=== PATIENT | male | born 1980 | race Caucasian/White ===

== ENCOUNTER 2018-09-12 15:52 | Emergency (ER) | payer MEDICAID, SELFPAY ==
[2018-09-12 15:53] VITALS: BP 135/102; PULSE 61; RESP 18; TEMP 36.6; O2SAT 99; BMI 29.7
--- NOTE | 2018-09-12 16:09 | ED.DCSUM_ITS ---
- ER Visit Summary Date of Service: 09/12/18 Chief Complaint: Suicidal ideation History of Present Illness: The patient is a 37 M patient reports he has been having suicidal thoughts since April of last year. He has not sought care for this until today. He was at the [facility] and was not able to contract for safety. He was sent to the emergency department. Reports he is having thoughts of jumping in front of a train. Physical Examination: Vitals: Stable. Afebrile. General: Well-nourished and well-developed. Head: Normocephalic atraumatic. Neck: Supple, no lymphadenopathy. No JVD. Nontender. Cardiovascular: Regular rate and rhythm. No murmurs. Respiratory: No respiratory distress. Clear to auscultation bilaterally. Abdominal: Soft, nontender, nondistended, normal bowel sounds. No guarding, rebound, or peritoneal signs. Back: Nontender. Extremities: Nontender, no edema. Skin: Normal color, no rash. Neurologic: Alert and oriented ?3. Cranial nerves II through XII are intact. Normal strength and sensation. Mental status exam: Patient appears their stated age. Good posture and grooming. Good eye contact. Normal rate, volume, and latency of speech. No homicidal ideation. No auditory or visual hallucinations. Flow of thought is logical. Insight and judgment is fair. Test Results: CBC shows lymphocytes 42. Chem-7 shows a chloride of 108 and BUN of 5. Tox screen shows amphetamines and marijuana. Blood alcohol level is normal. Emergency Department Course and Treatment: Patient is resting comfortably without complaint. He had a nicotine patch placed and was given Vistaril p.o. Treatment Plan: Patient was seen by the [facility]. They are in the process of getting hit and admitted to a psychiatric facility. Disposition: Transferred in stable condition. Impression: 1. Suicidal ideation. This note was generated with embraase dictation software. It may contain incorrect words, spelling, and punctuation that were not noted in review of the chart prior to signing ED Disposition - Plan for ED Patient: Referrals: Wilver Souza DO [COURTESY STAFF PHYSICIAN] -
[2018-09-12 16:14] LABS: Absolute Lymphocyte Count 3.63 X10^3/ul (0.83-4.51); Absolute Neutrophil Count 4.3 X10^3/uL (2.0-7.7); Basophil# 0.04 X10^3/uL; Basophil% 0.5 % (0-1); Eosinophil# 0.14 X10^3/uL; Eosinophils% 1.6 % (0-5); Hematocrit 40.8 % (40-54); Hemoglobin 13.9 g/dl (13.0-16.5); Lymphocyte # 3.63 X10^3/ul (4.0); Lymphocyte % 42.1 % (19-41); Mean Corp Hgb Conc 34.1 g/gl (32-36); Mean Corpuscular Hgb 29.2 pg (27.0-32.0); Mean Corpuscular Volume 85.7 fL (80-94); Mean Platelet Vol. 10.2 fl (6.2-12.0); Monocyte# 0.52 X10^3/uL; Neutrophil # 4.28 X10^3/uL (2.7-7.7); Neutrophil % 49.7 % (47-70); POSITIVE COUNT NO; POSITIVE DIFFERENTIAL NO; POSITIVE MORPHOLOGY NO; Platelet Count 312 K/mm3 (150-450); RBC Distribution Width CV 13.8 % (11.6-14.6); RBC Distribution Width SD 43.1 fl (35.1-43.9); Red Blood Count 4.76 M/mm3 (4.6-6.2); White Blood Count 8.6 K/mm3 (4.4-11.0)
--- NOTE | 2018-09-12 16:34 | CM.ED ---
SOCIAL WORK NOTE PT SENT IN BY [facility] FOR PLACEMENT. WILL GET MEDICAL CLEARANCE AND BE PLACED BY [facility] STAFF. SOLA Trevino, JAMAR
[2018-09-12 16:52] LABS: Anion Gap 3 (5-15); BUN 5 mg/dL (7-18); BUN/Creat Ratio 6.5 RATIO (10-20); Calcium,Total 8.6 mg/dL (8.5-10.1); Chloride 108 mmol/L (98-107); Creatinine, Serum 0.77 mg/dL (0.70-1.30); EST Glomerular Filtration Rate 121 mL/min (>60); Est Glom Filt Rate - Afr Amer 146 mL/min (>60); Estimated Creatinine Clearance 131.35 ml/min; Glucose 91 mg/dL (74-106); Potassium 3.9 mmol/L (3.5-5.1); Sodium Level 139 mmol/L (136-145)
[2018-09-12 17:08] LABS: Amphetamine Urine VISTA POSITIVE (<1000 ng/mL); Barbiturate Urine VISTA NEGATIVE (< 200 ng/mL); Benzodiazepine Urine VISTA NEGATIVE (< 200 ng/mL); Cocaine Urine VISTA NEGATIVE (< 300 ng/mL); Ecstacy Urine VISTA NEGATIVE (< 500 ng/mL); Methadone Urine VISTA NEGATIVE (< 300 ng/mL); PCP Urine VISTA NEGATIVE (< 25 ng/mL); THC Urine VISTA POSITIVE (< 50 ng/mL); Vista UDS pH Range 7
[2018-09-12] MEDS: hydrOXYzine PAM 25 MG Capsule 50 MG PO (17:35)
--- NOTE | 2018-09-12 18:32 | NURSING ---
ACCEPTED TO [facility] BY DOCTOR GARRETT [phone] REPORT
[2018-09-12 19:01] VITALS: BP 102/84; PULSE 63; RESP 16; O2SAT 97
[2018-09-12 20:10] VITALS: BP 108/78; PULSE 87; RESP 16; O2SAT 98
--- NOTE | 2018-09-12 20:53 | ED.RN ---
ATTEMPTED TO CALL REPORT TO [facility]. [facility].
== END 2018-09-12 20:15 ==
LOC: ED 16:20
PROVIDERS: Emergency Provider Emergency Medicine; Family Provider Family Medicine; PCP Family Medicine
DX: R45.851 Suicidal ideations (principal); F32.9 Major depressive disorder, single episode, unspecified; F90.9 Attention-deficit hyperactivity disorder, unspecified type; F41.9 Anxiety disorder, unspecified; Z72.0 Tobacco use
CPT/HCPCS: 80048; 80307; 80320; 85025; 99285; G0480

== ENCOUNTER → 2022-06-28 | Outpatient (CLI) | payer SELFPAY ==
--- NOTE | 2022-06-28 13:55 | VDLE_ITS ---
Reason For Study: LLE EDEMA RIGHT LEFT CFV is compressible, spontaneous, phasic, GSV is normal. competent and demonstrates normal CFV is compressible, spontaneous, phasic, augmentation. competent, and demonstrates normal Procedure augmentation. This is a venous duplex using B-mode, color FV is compressible, spontaneous, phasic, flow and spectral Doppler. competent and demonstrates normal Exam performed in department. augmentation. A preliminary report was called and/or faxed POP V is compressible, spontaneous, phasic, to Dr. Chong @ 2:20pm @ [phone]. competent and demonstrates normal augmentation. T/P Trunk is compressible. PTV is compressible. LT PerV is compressible. VL/Venous Duplex US, Unilateral Interpretation Summary Deep veins of the left lower extremity are patent and compressible segmentally. There is no evidence of left lower extremity deep vein thrombosis. The left great saphenous vein mansoor ears patent and compressible segmentally. Ordering Physician: Corie Forbes Referring Physician: Corie Forbes Performed By: Annel Abbasi, RUBEN, RVT
== END | disposition home or self-care (01) ==
LOC: CVS 13:50
PROVIDERS: PCP Family Medicine; Referring Provider Family Medicine; Visit Provider Family Medicine
DX: R60.0 Localized edema (principal)
CPT/HCPCS: 93971